=== PATIENT | female | born 1970 | race Native Hawaiian/Other Pacific Islander ===

== ENCOUNTER 2016-10-08 09:09 | Observation (INO) | payer OTHER ==
[2016-10-01 12:49] VITALS: BMI 27.2
[2016-10-08] MEDS ORDERED: Lactated Ringer's 1,000 ML IV ONE ×3 (13:46→17:30)
[2016-10-08] MEDS ORDERED: Propofol 10 mg/ml Inj (20 ML) ONE ×2 (13:47→14:12)
[2016-10-08] MEDS ORDERED: Midazolam 2 MG/2 ML VIAL ONE (13:47)
[2016-10-08] MEDS ORDERED: Lidocaine Hydrochloride 10 ML INJ ONE (13:50)
[2016-10-08] MEDS ORDERED: ceFAZolin IV 2 gm in Dextrose 50 ML IVPB ONE (13:53)
--- NOTE | 2016-10-08 15:29 | NM ---
HISTORY: 46Y Year old female with left breast cancer. TECHNIQUE: Multiple injections of 1 mCi of 99m Tc filtered sulfur colloid (total volume of 8 ml) were administered into the left breast tissue surrounding the lesion site. Anterior and oblique projection images of the chest were subsequently obtained. FINDINGS: There are 3 foci of increased radiotracer accumulation at the left axilla. The largest focus of increased tracer uptake at the left axilla is seen at 2 o'clock position in the AP view and 11 o'clock position in the left lateral view. IMPRESSION: At least 3 sentinel nodes seen at the left axilla as described above.
[2016-10-08] MEDS ORDERED: GENTAMICIN IR SCH (16:15)
[2016-10-08] MEDS ORDERED: BACITRACIN IR SCH (16:15)
[2016-10-08] MEDS ORDERED: [UNRECOGNIZED DRUG - OTHER] IR SCH (16:15)
[2016-10-08] MEDS ORDERED: CEFAZOLIN IR SCH (16:15)
[2016-10-08] MEDS ORDERED: Rocuronium 10 mg/ml (5 ml) ONE (17:16)
[2016-10-08] MEDS ORDERED: Morphine 4 MG/ML VIAL ONE (17:26)
[2016-10-08] MEDS ORDERED: ceFAZolin 1 gm FROZEN Premix 50 ML IVPB ONE (18:22)
[2016-10-08] MEDS ORDERED: Neostigmine Methylsulfate 3mg/3ml Syringe IV ONE ×2 (18:48)
[2016-10-08] MEDS ORDERED: ePHEDrine 50 mg/ml Inj ONE (19:25)
[2016-10-08] MEDS ORDERED: HYDROmorphone 0.5 mg/0.5 ml ISec IVP PRN ×2 (19:54→20:02)
--- NOTE | 2016-10-08 19:58 | PCM.SURG1 ---
Surgeon's Initial Post Op Note - Surgeon's Notes Surgeon: Dr. Melendez Residential Treatment Specialist: Dr. Hart PGY-2 Type of Anesthesia: General Endo Pre-Operative Diagnosis: Left breast cancer Operative Findings: see operative report Post-Operative Diagnosis: Left breast cancer Operation Performed: Left mastectomy with sentinel node dissection Specimen/Specimens Removed: left breast, left sentinel lymph node Estimated Blood Loss: EBL {In ML}: 200 Blood Products Given: N/A Drains Used: Damien Post-Op Condition: Good Date of Surgery/Procedure: 10/08/16 Time of Surgery/Procedure: 14:00
--- NOTE | 2016-10-08 20:01 | PCM.SURG1 ---
Surgeon's Initial Post Op Note - Surgeon's Notes Surgeon: Dr. Morris Rail Equipment Operator: Dr. Hart PGY-2 Type of Anesthesia: General Endo Pre-Operative Diagnosis: Left breast cancer s/p mastectomy Operative Findings: see operative report Post-Operative Diagnosis: Left breast cancer s/p mastectomy Operation Performed: Left breast reconstruction with tissue expanders and alloderm sling Specimen/Specimens Removed: none Estimated Blood Loss: EBL {In ML}: 40 Drains Used: Damien Post-Op Condition: Good Date of Surgery/Procedure: 10/08/16 Time of Surgery/Procedure: 05:00
[2016-10-08] MEDS ORDERED: Oxycodone/Acetaminophen 5/325 mg Tab PO PRN (20:02)
[2016-10-08] MEDS ORDERED: Sodium Chloride 0.9% 1,000 ML IV SCH (20:15)
[2016-10-08] MEDS ORDERED: diaZEpam 10 mg/2 ml Inj IVP SCH (20:15)
[2016-10-09] MEDS: ceFAZolin 1 gm FROZEN Premix 50 ML IVPB SCH ×2 (05:12→11:04)
--- NOTE | 2016-10-09 10:40 | CP.PCM.DIS ---
Provider - Provider Date of Admission: 10/08/16 19:58 Attending physician: Radha Morris Consults: none Time Spent in preparation of Discharge (in minutes): 30 Diagnosis - Discharge Diagnosis (1) Breast cancer, left Status: Acute Hospital Course - Hospital Course Hospital Course: 46 yo F with left breast cancer who presented to same day surgery for mastectomy with breast reconstruction. On 07/06/16, she had a US guided biopsy of left breast which found invasive duct carcinoma. On 10/08/16, she came to same day surgery. She had a left breast mastectomy with sentinel lymph node biopsy by Dr. Melendez followed by immediate breast reconstruction with tissue expanders and alloderm sling by Dr. Morris. A wade drain was left in place. On POD#1, she was doing well, voiding, tolerating diet, pain controlled with only Motrin, and was discharged home with Rx for Percocet, Valium and antibiotics. She will follow up with Dr. Morris in his office next week. Discharge Exam - Head Exam Head Exam: ATRAUMATIC, NORMAL INSPECTION - Eye Exam Eye Exam: EOMI, Normal appearance - Respiratory Exam Respiratory Exam: NORMAL BREATHING PATTERN. absent: UNREMARKABLE - Cardiovascular Exam Cardiovascular Exam: +S1, +S2 Additional comments: Surgical bra in place Incisions with dermabond in place, no drainage Wade drain in place with 65cc drainage since surgery yesterday - Neurological Exam Neurological exam: Alert, CN II-XII Intact, Oriented x3 - Psychiatric Exam Psychiatric exam: Normal Affect, Normal Mood - Skin Skin Exam: Dry, Normal Color, Warm Discharge Plan - Follow Up Plan Condition: GOOD Disposition: HOME/ ROUTINE Instructions: Mastectomy (DC), Immediate Post-mastectomy Prosthetic Breast Reconstruction (DC) Additional Instructions: Keep dressings clean and dry. Do not take a shower for 1 week. You may spot bathe or shower with a detachable shower head. Record drain output and empty the drain as needed. Bring the drainage amounts with you to the doctor office. Follow up with Dr. Morris in his office next week. You may resume regular activity but avoid heavy lifting. You may resume regular diet. You may take Percocet as prescribed for pain. Take full course of oral antibiotics. Take Valium as prescribed to decrease muscle spasm from tissue expanders Referrals: Radha Morris MD [Staff Provider] - Clinical Quality Measures - Date & Time of Discharge Summary Date of Discharge Summary: 10/09/16 Time of Discharge Summary: 10:39
[2016-10-09 11:06] VITALS: RESP 18; TEMP 98.5; O2SAT 98
[2016-10-09 15:47] VITALS: BP 115/76; PULSE 72
--- NOTE | 2016-10-18 09:36 | OP ---
PROCEDURE DATE: 10/08/2016 SURGEON: Radha Morris MD CLIENT RENEWAL SPECIALIST: Josefina Hart MD ANESTHESIA: General. DIAGNOSES: Left breast cancer, status post left skin-sparing mastectomy via circumvertical approach. OPERATIONS: 1. Placement of left tissue coding assistant, [place] CPX4 low height Siltex contour profile coding assistant, 450 mL, intraoperative fill volume 250 mL, serial number [id number]. 2. Placement of AlloDerm ready to use acellular dermal matrix, contour medium, 132 cm2, thin, lot #[id number]. INTRAVENOUS FLUIDS: Per anesthesia record. ESTIMATED BLOOD LOSS: 25 mL for reconstructive portion of the procedure. URINE OUTPUT: Not measured SPECIMEN: Mastectomy specimen weight: Left breast 435 grams. Additional specimens: Mastectomy incision skin edges sent separately. INDICATIONS: The patient is a very pleasant 46-year-old female with a history of recently diagnosed left breast cancer. The patient made the decision to undergo left mastectomy with a sentinel lymph node biopsy. The mastectomy was to be done in a skin-sparing fashion with the incision oriented vertically as previously diagrammed for the patient. The patient made the decision to proceed with staged reconstruction utilizing tissue expanders with acellular dermal matrix. Multiple reconstructive options were discussed with the patient prior to the procedure including the alternative of no reconstruction. Risks and benefits were discussed at length including risks of anesthesia complications, bleeding, infection, pain, scarring, device rupture or failure, extrusion, skin necrosis or loss, wound healing problems, asymmetry, unsatisfactory aesthetic outcome and need for further procedures. The patient understood all the above and agreed to go forward with the procedure. Consent was obtained. She was marked preoperatively in the standing upright position. She had the opportunity to ask any questions, which were answered to her satisfaction prior to the procedure. DESCRIPTION OF PROCEDURE: I was called to the operative theater once the left mastectomy and sentinel lymph node biopsy were completed by Dr. Melendez. Her portion of the procedure will be dictated separately. The patient was in a supine position with all extremities and bony prominences in position padded and secured appropriately. Sequential compression devices were on bilateral lower extremities and were activated. A timeout was administered for my portion of the procedure. Antibiotics had been administered and redosed appropriately during the case. The reconstructive portion of the procedure started with irrigation and hemostasis of the field. The inframammary fold was reinforced with 3-0 Vicryl sutures in an interrupted fashion. The pectoralis major was elevated with electrocautery starting at the inferior border and extending medially to the sternal attachments leaving these intact. Dissection was carried laterally, elevating a small portion of the pectoral serratus fascia. The surgical site was irrigated and inspected and hemostasis obtained. The acellular dermal matrix was then delivered to the field in a sterile fashion and washed in a basin of antibiotic solution. The AlloDerm was then secured to the inframammary fold using 3-0 Vicryl sutures in an interrupted fashion. The AlloDerm was then trimmed to size appropriately. The field was once again reprepped with Betadine solution and re-toweled, and gloves were exchanged for a new sterile gloves. The tissue coding assistant was delivered to the field in a sterile fashion, washed in antibiotic solution. Air was deflated from the coding assistant. It was placed in the subpectoral pocket and was sutured to have it secured to the chest wall using 3-0 Vicryl sutures. The AlloDerm was then sutured to the inferior border of the pectoralis major using 3-0 PDS suture in a running continuous fashion. A 15-Lao fluted Damien drain was placed through a midaxillary entry site and secured with 3-0 nylon suture. The coding assistant was then filled to its total intraoperative fill volume. The mastectomy skin edges were trimmed back until healthy bleeding was observed. Once again, the field was inspected and irrigated with antibiotic solution and hemostasis was obtained. Closure was then completed in a layered fashion using a combination of 3-0 Monocryl in the inverted deep dermal fashion followed by 4-0 Monocryl in a running intracuticular layer. At this point, inspection of the skin flaps revealed adequate perfusion of the soft tissues and minimal tension on the incision. The patient was then washed with normal saline and dried. Prineo and sterile dressings were applied. A drain was placed to suction. The patient was awoken and extubated uneventfully. She was transferred back to [facility] and taken to the recovery room. All instrument and needle counts were correct at the end of procedure. There were no complications. I was present for the entire portion of my part of the procedure. Radha Morris MD cc: [id number] TT: 10/18/2016 09:35:34 kun MALDONADO
--- NOTE | 2016-10-18 09:49 | OP ---
PROCEDURE DATE: 10/08/2016 SURGEON: Romain Melendez MD. LEGAL JOB TITLES: Dr. Hart. ANESTHESIA: General. PREOPERATIVE DIAGNOSIS: Carcinoma of left breast. POSTOPERATIVE DIAGNOSIS: Carcinoma of left breast. PROCEDURE: Left modified radical mastectomy with sentinel lymph node biopsy. DESCRIPTION OF OPERATION: With the patient in the supine position under adequate general anesthesia, the entire chest and left upper arm were prepped and draped in the usual sterile manner. The patient had incision marked preoperatively by Dr. Morris who was to be performing immediate reconstruction, and a circumareolar incision had been marked, and a circumareolar incision was made, taken down through the full thickness of skin. Skin flaps were raised superiorly to the clavicle and inferiorly to the chest wall, and the tumor, which was centrally located, was well contained within the central mass of breast tissue. The breast tissue was then dissected off the chest wall, primarily using cautery, and removed. The area of the tumor was not grossly present at either the superficial or deep margins of the specimen. Eleva lymph node biopsy was performed via a separate axillary incision. A small transverse incision was made at the lower axillary edge of the hair line after localization with the navigator indicated activity in this area, and upon piercing the axillary fascia, a total of 2 nodes with activities of up to 200- 300 were excised using Hemoclips and sent for pathologic examination. Additional activity was identified, and very close to the chest wall anteriorly , a third sentinel lymph node was identified with a higher level of activity up to 900 counts, and this was also excised and sent for pathologic examination. Frozen section examination revealed negative lymph nodes, and after hemostasis, the axillary incision was packed. The closure was performed by Dr. Morris as part of immediate reconstruction and will be dictated by him. Romain Melendez MD cc: [id number] TT: 10/18/2016 09:49:17 jn [email or web address]
== END 2016-10-09 13:35 | disposition home or self-care (01) ==
LOC: C.SDS 09:09 → C.6T 19:58
PROVIDERS: ADMIT Plastic Surgery; ATTEND Plastic Surgery
DX: C50.912 Malignant neoplasm of unspecified site of left female breast (principal)
CPT/HCPCS: 19307; 19357; 78195; 88305; 88307; 88331; 88342; A9541; C1789; G0378; J0690; J1100; J1580; J1885; J2250; J2270; J2405; J2704; J2710; J3010; J7040; J7120; Q4116

== ENCOUNTER 2016-11-17 11:28 | Day surgery (SDC) | payer OTHER ==
[2016-11-10 07:42] VITALS: BMI 26.3
[2016-11-17] MEDS ORDERED: ceFAZolin 1 gm FROZEN Premix 1 GM/50 ML ML IVPB ONE (12:55)
[2016-11-17] MEDS ORDERED: Lidocaine 1% Inj (20ml) ONE (12:55)
[2016-11-17] MEDS ORDERED: HEPARIN-NS 5,000 UNITS/500 ML 5,000 UNIT/500 ML BAG IV ONE (13:13)
[2016-11-17] MEDS ORDERED: Lactated Ringer's 1,000 ML IV ONE (14:10)
[2016-11-17] MEDS ORDERED: Midazolam 2 MG/2 ML VIAL ONE (14:12)
[2016-11-17] MEDS ORDERED: Propofol 10 mg/ml Inj (20 ML) ONE (14:17)
[2016-11-17] MEDS ORDERED: HYDROmorphone 0.5 mg/0.5 ml ISec IVP PRN (14:42)
--- NOTE | 2016-11-17 14:59 | PCM.SURG1 ---
Surgeon's Initial Post Op Note - Surgeon's Notes Surgeon: Dr. Melendez Bilingual Trainer: Dr. Hart PGY-2 Type of Anesthesia: IV Sedation, Local Pre-Operative Diagnosis: Left Breast cancer requiring chemo Operative Findings: placement confirmed via fluoro Post-Operative Diagnosis: Left Breast cancer requiring chemo Operation Performed: Right subclavian Portacath placement Specimen/Specimens Removed: portacath inserted Estimated Blood Loss: EBL {In ML}: 10 Blood Products Given: N/A Drains Used: No Drains Post-Op Condition: Good Date of Surgery/Procedure: 11/17/16 Time of Surgery/Procedure: 14:59
--- NOTE | 2016-11-17 15:41 | RAD ---
HISTORY: s/p Right portacath COMPARISON: Chest x-ray performed 08/28/16 TECHNIQUE: Chest, one view. FINDINGS: Right-sided MediPort catheter extends expected location of the cavoatrial junction. LUNGS: No focal consolidation. Please note that chest x-ray has limited sensitivity for the detection of pulmonary masses. PLEURA: No significant pleural effusion identified. No definite pneumothorax . CARDIOVASCULAR: Heart size appears within normal limits. OSSEOUS STRUCTURES: Mild degenerative changes. VISUALIZED UPPER ABDOMEN: Unremarkable. OTHER FINDINGS: Left breast tissue inventory worker. Left axillary clips. IMPRESSION: Distal tip of right-sided MediPort extends to the expected location of the cavoatrial junction.
[2016-11-17 16:03] VITALS: BP 115/73; PULSE 54; RESP 14; TEMP 97.2; O2SAT 100
--- NOTE | 2016-11-17 18:27 | OP ---
PROCEDURE DATE: 11/17/2016 SURGEON: Dr. Melendez. SOFTWARE LEAD: Dr. Hart. ANESTHESIA: Local with IV sedation, Hellen Carrasco CRNA. PREOPERATIVE DIAGNOSIS: Carcinoma, left breast. POSTOPERATIVE DIAGNOSIS: Carcinoma, left breast. PROCEDURE: Right subclavian Port-A-Cath insertion. DESCRIPTION OF OPERATION: With the patient in the supine position, having received IV sedation, the right upper chest and lower neck were prepped and draped in usual sterile manner. 1% lidocaine was i nfiltrated and a right subclavian vein puncture was performed. A guidewire was passed. The position was checked with C-arm. Additional 1% lidocaine was infiltrated and a subcutaneous pocket was creat ed of the right pectoral area. The catheter was tunneled from the pocket site to the insertion site. The vein dilator and introducer were passed over the guidewire and, with C-arm guidance, noted to p ass easily into the vena cava. The dilator and guidewire were removed and the catheter was passed vi a the introducer and positioned in the lower portion of the superior vena cava. The introducer was r emoved. The catheter was trimmed at 20 cm and affixed to the port using the fixation device. The ca theter system was aspirated for blood return and flushed with heparinized saline. The port was place d into the previously created pocket and sutured to the pectoral fascia with a 3-0 Prolene suture. T he catheter system was again aspirated and flushed, and the pocket was closed with running subcuticul ar suture of 4-0 Monocryl. Final x-ray was taken, indicating good position of the catheter and no kinking. A dry sterile dressing was applied. The patient tolerated the procedure well and transferred to the recovery room in stable condition. Estimated blood loss for the procedure was 10 mL. Romain Melendez MD cc: [id number] TT: 11/17/2016 18:27:06 [email or web address]
--- NOTE | 2016-11-18 09:10 | RAD ---
PROCEDURE: Intraoperative Fluoroscopy. HISTORY: BREAST CA FINDINGS: Fluoroscopic assistance was provided for right chest wall port placement. Please refer to the operative report from
== END 2016-11-17 15:00 | disposition home or self-care (01) ==
LOC: C.SDS 11:28
PROVIDERS: ATTEND Specialist
DX: C50.912 Malignant neoplasm of unspecified site of left female breast (principal)
CPT/HCPCS: 36561; 71010; 77001; J0690; J1644; J2250; J2704; J3010; J7120

== ENCOUNTER 2018-09-28 15:08 | Outpatient (CLI) | payer BC, OTHER | END 2018-09-28 15:09 | disposition home or self-care (01) | LOC: C.MAMMO 15:08 | DX: Z12.31 Encounter for screening mammogram for malignant neoplasm of breast (principal); Z85.3 Personal history of malignant neoplasm of breast; Z90.12 Acquired absence of left breast and nipple ==